=== PATIENT | male | born 1985 | race Caucasian/White ===

== ENCOUNTER → 2023-03-01 15:30 | Outpatient (CLI) | payer OTHER, SELFPAY ==
--- NOTE | ~2023-03-01 | XR_ITS ---
EXAMINATION: XR lumbar spine min 4V DATE: 03/01/2023 15:54 INDICATION: Low back pain. TECHNIQUE: 6 views of lumbar spine were obtained. COMPARISON: None. FINDINGS: S1 is a transitional segment. Bone alignment is normal. There is mild chronic anterior wedg ing of T12 and L1 vertebral bodies. There is mildly decreased disc height at T12-L1. There are endpla te osteophytes at most levels. There is multilevel facet joint osteoarthritis, severe bilaterally at L5-S1. IMPRESSION: 1. Mild lumbar spondylosis. Reviewed, dictated and finalized at location E. IMPRESSION: 1. Mild lumbar spondylosis.
== END ==
PROVIDERS: PCP Family Medicine; Visit Provider Family Medicine
DX: M47.896 Other spondylosis, lumbar region (principal)
CPT/HCPCS: 72110

== ENCOUNTER 2023-03-07 08:21 | Outpatient (CLI) | payer OTHER, SELFPAY ==
[2023-03-07 14:45] LABS: Basophils Percent Auto 0.6 % (0.2-1.2); Eosinophils Absolute Auto 0.1 K/mm3 (0-0.3); Eosinophils Percent Auto 1.8 % (0-4.4); Hematocrit 46.6 % (42.0-52.0); Hemoglobin 15.3 g/dL (14.0-18.0); Immature Granulocyte Absolute 0.01 K/mm3 (0.00-0.031); Immature Granulocyte Percent A 0.2 % (0-0.5); Lymphocytes Absolute Auto 2.14 K/mm3 (0.9-3.2); Lymphocytes Percent Auto 42.5 % (18.3-44.2); Mean Corpuscular HGB Conc 32.8 g/dl (32-36); Mean Corpuscular Hemoglobin 28.9 pg (26-34); Mean Corpuscular Volume 88.1 fl (80-100); Monocytes Absolute Auto 0.5 K/mm3 (0.1-0.6); Monocytes Percent Auto 9.9 % (2.6-8.5); Neutrophils Absolute Auto 2.3 K/mm3 (1.3-6.7); Platelet Count Result 231 k/mm3 (150-375); Red Blood Count 5.29 M/mm3 (4.6-6.20); Red Cell Distribution Width 12.8 % (11.5-14.5)
[2023-03-07 16:23] LABS: Alanine Aminotransferase 70 U/L (6-50); Albumin Level 4.7 g/dL (3.5-5.1); Alkaline Phosphatase 44 U/L (38-126); Anion Gap 9 mmol/L (8-16); Aspartate Amino Transferase 62 U/L (17-59); Bilirubin,Total 0.6 mg/dL (0.2-1.3); Blood Urea Nitrogen 18 mg/dL (9-20); Calcium 9.1 mg/dL (8.4-10.2); Carbon Dioxide 30 mmol/L (22-30); Chloride 102 mmol/L (98-107); Cholesterol 197 mg/dL (0-200); Estimated Glomerular Filt Rate > 60; Glucose 83 mg/dL (65-110); HDL Direct 31 mg/dL; Potassium 4.2 mmol/L (3.4-5.0); Sodium 141 mmol/L (137-145); Triglycerides 130 mg/dL (<150)
[2023-03-07 16:34] LABS: LDL Cholesterol Direct 128 mg/dL
== END 2023-03-07 08:22 | disposition home or self-care (01) ==
LOC: ANHGOSHLAB 08:23
PROVIDERS: PCP Family Medicine; Visit Provider Family Medicine
DX: R53.83 Other fatigue (principal); Z13.220 Encounter for screening for lipoid disorders; Z13.228 Encounter for screening for other metabolic disorders
CPT/HCPCS: 36415; 80053; 80061; 85025

== ENCOUNTER 2023-03-21 08:42 | Outpatient (CLI) | payer OTHER, SELFPAY ==
[2023-03-21 19:28] LABS: Alanine Aminotransferase 89 U/L (6-50); Albumin Level 4.7 g/dL (3.5-5.1); Alkaline Phosphatase 50 U/L (38-126); Anion Gap 9 mmol/L (8-16); Aspartate Amino Transferase 59 U/L (17-59); Bilirubin,Total 0.9 mg/dL (0.2-1.3); Blood Urea Nitrogen 14 mg/dL (9-20); Calcium 9.1 mg/dL (8.4-10.2); Carbon Dioxide 30 mmol/L (22-30); Chloride 100 mmol/L (98-107); Estimated Glomerular Filt Rate > 60; Glucose 74 mg/dL (65-110); Sodium 139 mmol/L (137-145)
== END 2023-03-21 08:43 | disposition home or self-care (01) ==
LOC: ANHGOSHLAB 08:43
PROVIDERS: PCP Family Medicine; Visit Provider Family Medicine
DX: R74.8 Abnormal levels of other serum enzymes (principal)
CPT/HCPCS: 36415; 80053

== ENCOUNTER 2023-06-13 08:00 | Outpatient (RCR) | payer OTHER, SELFPAY ==
--- NOTE | 2023-05-15 17:30 | PTOPEVAL1 ---
Assessment and note entered by Neida Leon, PT, DPT Evaluation Information Assessment Status Evaluation Diagnosis low back pain Subjective Information Pt states for 3 month this summer he was getting soreness in his lower back. It later led to some imaging which revealed some arthritis in his lower back. He states be feels better when he is active and more soreness when he sits for longer than an hour or so. He has 2 young kids that he is very active with. 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 Reported Pain Level Pain Score 0: Self Report Assessment PT Clinical Summary Chaz presents to [facility] today for his initial evaluation with a diagnosis of low back pain. Today he demonstrates decreased thoracic and lumbar mobility with active ROM and through palpation. He demonstrates an anteriorly shifted posture in standing and demonstrates increased thoracic kyphosis and a forward head in sitting. His hips are very thigh and restricted likely contributing to these postures. He reports an increase in pain with lifting/carrying. Skilled therapy services are indicated to improve body mechanics, flexibility, and to return to PLOF without limitations. Pt was instructed in a HEP, he plans to continue this at home and will return in one month for follow up. Plan of Care Interventions Electrical Stimulation,Gait Training,Hot Pack/Cold Pack,Manual Therapy,Neuro Re-education,Patient/ Caregiver Educati,Therapeutic Activities, Therapeutic Exercise PT Services Indicated Yes Treatment Frequency and follow up in one month Duration These treatments will address the objective and functional deficits as defined above. The patient will be advanced safely and appropriately in order for the patient to progress towards his/her prior level of function. Additional exercises will be introduced and as well as a comprehensive home exercise program upon discharge, if needed, ?to ensure carryover of functional gains achieved in the clinic. This treatment plan has been reviewed and agreement upon by the patient.
--- NOTE | 2023-06-13 08:50 | PTOPPROG ---
Assessment and note entered by Neida Leon, PT, DPT Evaluation Information Assessment Status Progress Diagnosis low back pain Subjective Information Pt states things are going well. He states he is doing his exercises about 5/7 days a week. He states he still feels a good stretch when he is doing his exercises but these have improved. He states last week he was reaching for something in his car and strained his back, he states this happens about 1-2x/month and it takes a week or two to feel back to normal. He states in the morning after these fair ups he tends to be a little more stiff than a normal day. Assessment PT Clinical Summary Chaz presents to therapy today for his progress report with a diagnosis of low back pain. He has completed hip HEP for the last month IND. Today the focus was shifted to body mechanics during functional movements, functional lifts and learning a hip hinge. Skilled therapy services are indicated to improve body mechanics, flexibility, and to return to PLOF without limitations. His HEP was progressed, he plans to continue this at home and will return in one month for follow up . Plan of Care Interventions Electrical Stimulation,Gait Training,Hot Pack/Cold Pack,Manual Therapy,Neuro Re-education,Patient/ Caregiver Educati,Therapeutic Activities, Therapeutic Exercise PT Services Indicated Yes Treatment Frequency and follow up in one month Duration These treatments will address the objective and functional deficits as defined above. The patient will be advanced safely and appropriately in order for the patient to progress towards his/her prior level of function. Additional exercises will be introduced and as well as a comprehensive home exercise program upon discharge, if needed, ?to ensure carryover of functional gains achieved in the clinic. This treatment plan has been reviewed and agreement upon by the patient.
--- NOTE | 2023-07-04 13:58 | PTOPDC ---
Assessment and note entered by Neida Leon, PT, DPT Evaluation Information Assessment Status Discharge - Pt Not Present Diagnosis low back pain Subjective Information Pt called today and cancelled his follow up appointment for next week. He states he is doing really well and does not need to return to therapy . He will be discharged at this time per pt request. Assessment PT Clinical Summary Chaz was evaluated on 05/14/23 and completed one other follow up appointment on 06/13/23.
== END 2023-07-04 14:34 | disposition home or self-care (01) ==
LOC: ANHGOSHPT 08:00
PROVIDERS: PCP Family Medicine; Visit Provider Family Medicine
DX: M54.50 Low back pain, unspecified (principal); G89.29 Other chronic pain
CPT/HCPCS: 97110; 97161; 97530

== ENCOUNTER 2024-05-04 10:36 | Emergency (ER) | payer OTHER, SELFPAY ==
[2024-05-04 10:41] VITALS: BP 123/78; PULSE 71; RESP 18; TEMP 35.9; O2SAT 100
--- NOTE | 2024-05-04 10:51 | ED.URI ---
HPI - URI/Sore Throat General Chief Complaint: Upper Respiratory Infection Stated Complaint: Cough Time Seen by Provider: 05/04/24 10:52 Source: patient, RN notes reviewed and old records reviewed Mode of arrival: ambulatory Limitations: no limitations History of Present Illness HPI Narrative: Patient presents with 4 day history of dry hacking cough. He reports cough is worse with lying down, states he has been sleeping poorly as a result. He denies any fever, chills, sweats. Slightly runny nose. No sore throat. Has been taking Mucinex, says this is making symptoms worse instead of better. He is not in any distress. He denies any shortness of breath or wheezing Related Data Allergies Allergy/AdvReac Type Severity Reaction Status Date / Time No Known Allergies Allergy Verified 05/04/24 10:41 Review of Systems Review of Systems: All systems reviewed & are unremarkable except as noted in HPI and below Constitutional: Constitutional: Reports as per HPI and Reports no additional constitutional complaints ENT: Reports system reviewed and no additional complaints, except as documented and Reports as per HPI Cardiovascular: Cardiovascular: Reports as per HPI and Reports no additional cardiovascular complaints Respiratory: Respiratory: Reports as per HPI, Reports no additional respiratory complaints, Reports cough and Denies dyspnea Gastrointestinal: Gastrointestinal: Reports no additional gastrointestinal complaints [facility], [facility] Surgical History Surgical History History of vasectomy Family History Family History Mother Family history of thyroid disease Sibling Patient's sister is in good health Patient's brother is in good health Father Malignant neoplasm of prostate Social History Social History Smoking status: Never smoker Second hand tobacco smoke exposure: No Alcohol intake: current Drinks per week: 2 Lack of Transportation: No Lack of Food: Never True Current Housing: I Have Housing Concerned About Future Housing: No Difficulty Paying Gas/Electric Bills: No Difficulty Paying for Meds: No Currently Unemployed: No Difficulty w/ Childcare or Family Care: No Comments At the time of my signature, I reviewed and agree with the nursing past medical, surgical, social, and family history. There is no relevant family history pertinent to the patient complaint. Exam Const: General: cooperative, no acute distress, alert and awake Orientation/consciousness: oriented to person, oriented to place and oriented to time HENMT: Head: normal to inspection Mouth: Yes moist mucous membranes Throat: posterior oropharynx normal Resp: Effort & Inspection: normal respiratory effort and able to speak in complete sentences Auscultation: clear to auscultation bilaterally, no crackles, no rales, no rhonchi and no wheezes Cardio: Palpation: normal PMI Rate: regular rate Rhythm: regular rhythm Heart sounds: S1 normal heart sound present and S2 normal heart sound present Neuro: General: oriented to person, oriented to place and oriented to time Cranial nerves: Yes CN's II-XII intact bilaterally Psych: Appearance: grossly normal Thought process: Normal thought process present Insight: Good insight present (Psych) Judgement: Good judgement present (Psych) Course Course Level of Care: Express Care Visit Vital Signs Vital signs: Vital Signs Temperature 96.6 F L 05/04/24 10:41 Pulse Rate 71 05/04/24 10:41 Respiratory Rate 18 05/04/24 10:41 Blood Pressure 123/78 05/04/24 10:41 Pulse Oximetry 100 05/04/24 10:41 Oxygen Delivery Room Air 05/04/24 10:41 Temperature 96.6 F L 05/04/24 10:41 Pulse Rate 71 05/04/24 10:41 Respiratory Rate 18 05/04/24 10:41 Blood Pressure 123/78 05/04/24 10:41 Pulse Oximetry 100
== END 2024-05-04 11:05 | disposition home or self-care (01) ==
PROVIDERS: Emergency Provider Nurse Practitioner Family; PCP Family Medicine
DX: J06.9 Acute upper respiratory infection, unspecified (principal); Z98.52 Vasectomy status
CPT/HCPCS: 99213; G0463

== ENCOUNTER 2025-01-29 09:08 | Emergency (ER) | payer OTHER, SELFPAY ==
[2025-01-29 09:18] VITALS: BP 142/93; PULSE 82; RESP 16; TEMP 36.8; O2SAT 100
--- NOTE | 2025-01-29 09:22 | PC.NURSE ---
0920 Taken to room 2, patient ambulatory with steady gait.
--- NOTE | 2025-01-29 09:34 | ED_ITS ---
HPI - General Adult General Chief complaint: Unspecified Stated complaint: Swollen Neck Time Seen by Provider: 01/29/25 09:19 Source: patient and RN notes reviewed Mode of arrival: ambulatory Limitations: no limitations History of Present Illness HPI narrative: Patient presents today with a 1 month history of swelling to the right neck area. He does report slight increase in size since noticing. Denies pain, sh ortness of breath, difficulty swallowing, but does report a, ?tickle in the throat. ? Denies recent illness, persistent cough, unexplained weight loss, or any additional symptoms. He cannot get in to see his PCP for 3 months and was told to come to urgent care for evaluation. Related Data Home Medications ?Medication ?Instructions ?Recorded ?Confirmed ?Last Taken ?Type No Home Medications 01/29/25 01/29/25 Unknown History Allergies Allergy/AdvReac Type Severity Reaction Status Date / Time No Known Allergies Allergy Verified 01/29/25 09:17 Review of Systems Review of Systems: CONSTITUTIONAL: Denies body aches, fever, chills, or sweats. EYES: Denies visual changes, redness, or discharge. ENT: Denies rhinorrhea, congestion, sore throat, or otalgia. CARDIOVASCULAR: Denies chest pain, palpitations, or edema. RESPIRATORY: Denies cough or dyspnea. GASTROINTESTINAL: Denies abdominal pain, nausea, vomiting, or diarrhea. GENITOURINARY: Denies dysuria or hematuria. SKIN: Right neck swelling MUSCULOSKELETAL: Denies back pain, joint pain, or myalgia. NEUROLOGIC: Denies headache, numbness, tingling, or weakness. PSYCH: Denies depression or anxiety. [facility] Surgical History Surgical History History of vasectomy Family History Family History Mother Family history of thyroid disease Sibling Patient's sister is in good health Patient's brother is in good health Father Malignant neoplasm of prostate Social History Social History Smoking status: Never smoker Second hand tobacco smoke exposure: No Alcohol intake: current Drinks per week: 2 Lack of Transportation: No Lack of Food: Never True Current Housing: I Have Housing Concerned About Future Housing: No Difficulty Paying Gas/Electric Bills: No Difficulty Paying for Meds: No Currently Unemployed: No Difficulty w/ Childcare or Family Care: No Comments Reviewed Exam Narrative: GENERAL: Well-appearing, well-nourished, and in no acute distress. HEAD: Normocephalic, atraumatic. EYES: EOMI. No redness or drainage. Conjunctivae normal. ENT: Mucous membranes pink and moist. Nares clear. No rhinorrhea. NECK: Normal AROM and does not elicit discomfort. 5 x 9 cm nontender area of localized swelling to the right anterolateral neck. Area is soft and movable. No erythema, ecchymosis, induration. It does move with swallowing. CHEST: No respiratory distress. Clear to auscultation. HEART: Regular rate and rhythm. No murmur appreciated. EXTREMITIES: Normal range of motion. No edema. SKIN: Warm, dry, no rash. Capillary refill normal. Normal skin turgor. NEURO: No focal deficits. Alert and oriented x3. Gait steady. PSYCH: Normal affect. No signs of depression or anxiety. Course Course Level of Care: Express Care Visit Vital Signs Vital signs: Vital Signs Temperature 98.2 F 01/29/25 09:18 Pulse Rate 82 01/29/25 09:18 Respiratory Rate 16 01/29/25 09:18 Blood Pressure 142/93 H 01/29/25 09:18 Pulse Oximetry 100 01/29/25 09:18 Oxygen Delivery Room Air 01/29/25 09:18 Temperature 98.2 F 01/29/25 09:18 Pulse Rate 82 01/29/25 09:18 Respiratory Rate 16 01/29/25 09:18 Blood Pressure 142/93 H 01/29/25 09:18 Pulse Oximetry 100 01/29/25 09:18 Oxygen Delivery Room Air 01/29/25 09:18 Reviewed Transfer Transfered to: [facility] Transportation: Other (Private vehicle) Transfer rationale: Neck swelling Accepting physician: Hector Kc comments: Report given to Shameka DEUTSCH Medical Decision Making MDM Narrative Medical decision making narrative: Patient will be transferred to the ER for further evaluation. Differential Diagnosis Differential Diagnosis: Thyroid nodule, lymphadenopathy, malignancy, lipoma Vital Signs Vital Signs: Vital Signs Temperature 98.2 F 01/29/25 09:18 Pulse Rate 82 01/29/25 09:18 Respiratory Rate 16 01/29/25 09:18 Blood Pressure 142/93 H 01/29/25 09:18 Pulse Oximetry 100 01/29/25 09:18 Oxygen Delivery Room Air 01/29/25 09:18 Temperature 98.2 F 01/29/25 09:18 Pulse Rate 82 01/29/25 09:18 Respiratory Rate 16 01/29/25 09:18 Blood Pressure 142/93 H 01/29/25 09:18 Pulse Oximetry 100 01/29/25 09:18 Oxygen Delivery Room Air 01/29/25 09:18 Critical Care Time Critical Care Time Critical Care Time: No Discharge Plan Discharge Clinical Impression: Localized swelling, mass and lump, neck Patient Disposition: Acute Care Hospital Condition: Stable Patient Language: Palestinian Prescriptions: No Action No Home Medications Follow-up/Referrals: PHYSICIAN,PROPOSAL COORDINATOR [Primary Care Provider] - Time of Disposition: 09:35
== END 2025-01-29 09:38 | disposition short-term general hospital (02) ==
PROVIDERS: Emergency Provider Nurse Practitioner
DX: R22.1 Localized swelling, mass and lump, neck (principal); Z98.52 Vasectomy status
CPT/HCPCS: 99212; G0463

== ENCOUNTER 2025-01-29 09:53 | Emergency (ER) | payer OTHER, SELFPAY ==
--- NOTE | ~2025-01-29 | CT_ITS ---
EXAMINATION: CT soft tissue neck w con DATE: 01/29/2025 11:02 INDICATION: Anterolateral right neck swelling TECHNIQUE: Computed tomography (CT) of the neck was performed with 75 mL Omnipaque-350 intravenous co ntrast. Automated exposure control and iterative reconstruction technique were employed. The dose-dakotah gth product was 650.44 mGy-cm. COMPARISON: None FINDINGS: Orbits are normal. Mucous retention cysts in the left maxillary sinus. Mastoid air cells and middle e ar cavities are clear. Submandibular and parotid glands are symmetric and large centrally hypodense l ikely partially cystic nodule in the right thyroid lobe which measures 5.8 cm in craniocaudal length. There are scattered normal-sized lymph nodes in the neck, no lymphadenopathy. No other masses ident ified. The vasculature is patent and normal in caliber. Airway is unremarkable. Calcified right hilar and mediastinal lymph nodes consistent with old granulomatous disease. His last upper lungs are neville r.. IMPRESSION: 1. 5.8 cm right thyroid mass for which ultrasound-guided biopsy would be recommended. Reviewed, dictated and finalized at location A. IMPRESSION: 1. 5.8 cm right thyroid mass for which ultrasound-guided biopsy would be recomm ended.
[2025-01-29 09:56] VITALS: BP 146/101; PULSE 74; RESP 16; TEMP 36.7; O2SAT 100
--- NOTE | 2025-01-29 10:08 | ED.SKABFB ---
HPI - Skin/Abscess/Foreign Bdy General Chief complaint: Skin/Abscess/Foreign Body Stated complaint: swelling to neck Time Seen by Provider: 01/29/25 09:55 Source: patient Mode of arrival: ambulatory Limitations: no limitations History of Present Illness HPI narrative: Patient is a 39-year-old male who presents the ED with report of swelling to his neck. Patient reports he has noticed an area of swelling to his anterior and right lateral neck over the past 1 month. States it does not cause him any problems. Denies any pain. Denies pain with neck movement. Denies difficulty breathing. Over the past 1 week, he has noticed slight change in his swallowing related to the swelling, but denies dysphasia. He went to an urgent care today was prompted to the ED for further evaluation. He is unable to see his primary care doctor until April. Denies fevers. Denies history of thyroid issues. Related Data Home Medications ?Medication ?Instructions ?Recorded ?Confirmed ?Last Taken ?Type No Home Medications 01/29/25 01/29/25 Unknown History Allergies Allergy/AdvReac Type Severity Reaction Status Date / Time No Known Allergies Allergy Verified 01/29/25 09:59 Review of Systems Review of Systems: All systems reviewed & are unremarkable except as noted in HPI. All systems reviewed & are unremarkable except as noted in HPI and below PMFSH Past Medical History Medical History (Updated 01/29/25 @ 13:10 by Aleja Wood PA-C) Carpal tunnel syndrome of right wrist Thyroid mass Surgical History Surgical History History of vasectomy Family History Family History Mother Family history of thyroid disease Sibling Patient's sister is in good health Patient's brother is in good health Father Malignant neoplasm of prostate Social History Social History Smoking status: Never smoker Second hand tobacco smoke exposure: No Alcohol intake: current Drinks per week: 2 Lack of Transportation: No Lack of Food: Never True Current Housing: I Have Housing Concerned About Future Housing: No Difficulty Paying Gas/Electric Bills: No Difficulty Paying for Meds: No Currently Unemployed: No Difficulty w/ Childcare or Family Care: No Exam Narrative: GENERAL: Well appearing, well nourished, non-toxic, in no acute distress. HEAD: Normocephalic, atraumatic. NECK: Appreciable swelling to lower anterior neck extending slightly to the R anterolateral region. Does feel soft and slightly moveable. Nontender. Not firm. No overlying erythema or warmth. Neck is supple with full nonpainful ROM. RESPIRATORY: Airway patent, respirations nonlabored. Clear to auscultation bilaterally, no rales, rhonchi, wheezing. No stridor or distress. CARDIOVASCULAR: Regular rate and rhythm without murmurs, rubs, or gallops. MUSCULOSKELETAL: Moves all extremities. No gross deformities. SKIN: Warm, dry, normal color. NEURO: A&O X3. Speech clear. PSYCHIATRIC: Appropriate mood and affect. Normal interaction. Course Vital Signs Vital signs: Vital Signs Temperature 98.1 F 01/29/25 09:56 Pulse Rate 74 01/29/25 09:56 Respiratory Rate 16 01/29/25 09:56 Blood Pressure 146/101 H 01/29/25 09:56 Pulse Oximetry 100 01/29/25 09:56 Oxygen Delivery Room Air 01/29/25 09:56 Temperature 98.1 F 01/29/25 09:56 Pulse Rate 76 01/29/25 13:00 Respiratory Rate 16 01/29/25 13:00 Blood Pressure 143/104 H 01/29/25 13:00 Pulse Oximetry 99 01/29/25 13:00 Oxygen Delivery Room Air 01/29/25 09:56 MDM - Skin/Abscess/Foreign Bdy MDM Narrative Medical decision making narrative: Patient presented to ED with 1 month history of anterior neck swelling. Vital signs are stable. Patient denying any respiratory complaints. No signs of airway compromise or respiratory distress. No difficulty swallowing or breathing. Oxygen stable on room air. Laboratory studies without leukocytosis. Thyroid studies within normal range. CT soft tissue neck was obtained and showing 5.8 cm right-sided thyroid mass. Recommending ultrasound-guided biopsy. Discussed with Radiology, no availability to have procedure done today. Will have to be outpatient. Will place outpatient order to have ultrasound-guided biopsy of thyroid. Discussed case with Dr. Estrada, PCP, who patient is scheduled to see as new patient in April. Will have office contact patient today to make follow-up appointment after biopsy. Patient was updated on imaging findings, need for close follow-up, given strict return precautions. He is in agreement with plan. Feels comfortable going home. Discharged in stable condition. Medical Records Attestation: I reviewed the patient's medical records. Lab Data Attestation: I reviewed the patient's lab results. 01/29/25 10:16 01/29/25 10:16 Labs: Lab Results 01/29/25 Range/Units 10:16 WBC 5.0 (4.5-10.0) K/mm3 RBC 5.49 (4.6-6.20) M/mm3 Hgb 16.0 (14.0-18.0) g/dL Hct 47.4 (42.0-52.0) % MCV 86.3 (80-100) fl MCH 29.1 (26-34) pg MCHC 33.8 (32-36) g/dl RDW 12.5 (11.5-14.5) % Plt Count 222 (150-375) k/mm3 MPV 8.4 (7.4-10.4) fl Immature Gran % (Auto) 0.0 (0-0.5) % Neut % (Auto) 58.2 (45.5-73.1) % Lymph % (Auto) 32.2 (18.3-44.2) % Mills % (Auto) 7.6 (2.6-8.5) % Eos % (Auto) 1.0 (0-4.4) % Baso % (Auto) 1.0 (0.2-1.2) % Lymph # (Auto) 1.60 (0.9-3.2) K/mm3 Mills # (Auto) 0.4 (0.1-0.6) K/mm3 Eos # (Auto) 0.1 (0-0.3) K/mm3 Baso # (Auto) 0.1 (0.0-0.1) K/mm3 Abs Immat Gran (auto) 0.00 (0.00-0.031) K/mm3 Absolute Neuts (auto) 2.9 (1.3-6.7) K/mm3 Absolute Nucleated RBC 0.000 (0.0-0.012) K/mm3 Nucleated RBC % 0.0 (0.0-0.2) % Sodium 138 (137-145) mmol/L Potassium 4.9 (3.4-5.0) mmol/L Chloride 103 (98-107) mmol/L Carbon Dioxide 26 (22-30) mmol/L Anion Gap 9 (4-12) mmol/L BUN 14 (9-20) mg/dL Creatinine 1.07 (0.7-1.3) mg/dL Estim Creat Clear Calc 104 ml/min Estimated GFR > 60 (59 - ) Glucose 104 (65-110) mg/dL Calcium 9.5 (8.4-10.2) mg/dL TSH (Reflex) 1.910 (0.465-4.68) uIU/mL Imaging Data Attestation: I personally reviewed and interpreted this imaging study as follows: Radiologist's impression: ITS Impressions Soft Tissue Neck CT 01/29/25 11:50 IMPRESSION: 1. 5.8 cm right thyroid mass for which ultrasound-guided biopsy would be recommended. Discharge Plan Discharge Clinical Impression: Thyroid mass Patient Disposition: Home Condition: Stable Instructions: Antibiotic Form, Thyroid Goiter (ED), Thyroid Nodules (ED) Additional Instructions: Contact [facility] ([phone]) to make appointment for outpatient ultrasound guided biopsy of thyroid. Take lab order sheet with you. Dr. Estrada's office should be contacting today to make a follow-up appointment. Return to the ED if you experience worsening or severe swelling, difficulty breathing or swallowing, unable to keep down food or drink, persistent fevers, or any other symptoms of concern. Patient Language: Citizen Of [place] Prescriptions: No Action No Home Medications Other Ambulatory Orders: US biopsy thyroid (Routine) Timeframe: 1 Month Location: Determined by Patient Ordered By: Aleja Wood Follow-up/Referrals: Geronimo Estrada MD [Physician] - (PRIMARY CARE) PHYSICIAN,[employer] [Non-Staff] - Time of Disposition: 13:05
[2025-01-29 10:21] LABS: Basophils Absolute Auto 0.1 K/mm3 (0.0-0.1); Eosinophils Absolute Auto 0.1 K/mm3 (0-0.3); Hematocrit 47.4 % (42.0-52.0); Lymphocytes Percent Auto 32.2 % (18.3-44.2); Mean Corpuscular HGB Conc 33.8 g/dl (32-36); Mean Corpuscular Hemoglobin 29.1 pg (26-34); Mean Corpuscular Volume 86.3 fl (80-100); Mean Platelet Volume 8.4 fl (7.4-10.4); Monocytes Absolute Auto 0.4 K/mm3 (0.1-0.6); Monocytes Percent Auto 7.6 % (2.6-8.5); Neutrophils Absolute Auto 2.9 K/mm3 (1.3-6.7); Neutrophils Percent Auto 58.2 % (45.5-73.1); Platelet Count Result 222 k/mm3 (150-375); Red Blood Count 5.49 M/mm3 (4.6-6.20); Red Cell Distribution Width 12.5 % (11.5-14.5)
[2025-01-29 10:34] LABS: Anion Gap 9 mmol/L (4-12); Blood Urea Nitrogen 14 mg/dL (9-20); Calcium 9.5 mg/dL (8.4-10.2); Carbon Dioxide 26 mmol/L (22-30); Chloride 103 mmol/L (98-107); Estimated CRCL calculation 104 ml/min; Estimated Glomerular Filt Rate > 60; Glucose 104 mg/dL (65-110); Potassium 4.9 mmol/L (3.4-5.0); Sodium 138 mmol/L (137-145)
--- OUTSIDE RECORDS SUMMARY | 2025-01-29 10:40 | XMS_ITS | Clinical Summary ---
Author Organization [facility] Care Team Providers Care Wood Gluer Name Role Phone Unavailable Primary Care Provider Unavailabl e Social History Tobacco Use Types Packs/Day Years Used Date Smoking Tobacco: Never Assessed Sex and Gender Information Value Date Recorded Sex Assigned at Not on file Legal Sex Male 8:02 AM [employer] Gender Identity Not on file Sexual Orientation Not on file Plan of Treatment Health Maintenance Due Date Last Done Comments Hepatitis C Virus (HCV) Screening 1984 Hepatitis B Immunization (1 of 3 - 19+ 3-dose series) 2003 Influenza Immunization (#1) 04/20/202409/2019, 06/09/2019, 06/10/2018 SARS-COV-2 Immunization ( season) 2024 Respiratory Syncytial Virus (RSV) Immunization (Adult) (1 - 1-dose 75+ series) 2059 DTaP/Tdap/Td Immunization Discontinued 06/10/2018 TdaP Immunization Completed 06/10/2018 Meningococcal Immunization (ACWY) Aged Out No longer eligible based on patient's age to complete this topic Pneumococcal Immunization Combined Aged Out No longer eligible based on patient's age to complete this topic Rotavirus Immunization Aged Out No lo nger eligible based on patient's age to complete this topic
--- OUTSIDE RECORDS SUMMARY | 2025-01-29 10:40 | XMS_ITS | Clinical Summary ---
Author Organization [facility] Address [address] [place] [address] Care Team Providers Care Roof Tiler Name Role Phone Unavailable Primary Care Provider Unavailabl e Source Comments [facility],non-owned Affiliates and Associated Physician Practices is amultiple site organization consisting of ambulatory clinics and hospital sitesin [place], [place], [place] and [place]. This disclosure is being madepursuant to the Care Everywhere program and may not contain all information available regarding this patient. Last updated 18.[facility] Allergies No known active allergies Medications * Be aware that medications may not be up to date on this document. Alwaysverify current medications with the patient. No known medications Immunizations Immunization Administration Dates Next Due INFLUENZA VACCINE, QUADR. (F LUZONE; FLULAVAL; FLUARIX; AFLURIA QUADRIVALENT; 6MO+), 0.5 ML (IIV4) 06/09/2019 Social History Tobacco Use Types Packs/Day Years Used Date Smoking Tobacco: Never Assessed Sex and Gender Information Value Date Recorded Sex Assigned at Not on file Legal Sex Male 9:52 AM CDT Gender Identity Not on file Sexual Orientation Not on file Last Filed Vital Signs Vital Sign Reading Time Taken Comments Blood Pressure 118/76 01/12/2019 2:20 PM CDT Pulse 71 01/12/2019 2:20 PM CDT Temperature 37.1 C (98.7 F) 01/12/2019 2:20 PM CDT Respiratory Rate 18 01/12/2019 2:20 PM CDT Oxygen Saturation 99% 01/12/2019 2:20 PM CDT Inhaled Oxygen Concentration - - Weight 97.5 kg (215 lb) 01/12/2019 2:20 PM CDT Height 185.4 cm (6' 1) 01/12/2019 2:20 PM CDT Body Mass Index 28.37 01/12/2019 2:20 PM CDT Plan of Treatment Health Maintenance Due Date Last Done Comments LIPID TESTING 1984 HIV SCREENING 1999 HEPATITIS C SCREENING 05/31/2002 DTAP/TDAP/TD VACCINES (1 - Tdap) 2003 HEPATITIS B VACCINE (1 of 3 - 19+ 3-dose series) 2003 COVID-19 VACCINE (1 - 2023-2 5 season) 2024 DEPRESSION SCREENING 08/20/2024 INFLUENZA VACCINE (Season Ended) 2025 06/09/20 19 ZOSTER VACCINE (1 of 2) 2034 HIB VACCINE Aged Out No longer eligi ble based on patient's age to complete this topic HPV VACCINE Aged Out No longer eligi ble based on patient's age to complete this topic MENINGOCOCCAL (Group B) VACC INE SHARED DECISION-MAKING Aged Out No longer eligibl e based on patient's age to complete this topic MENINGOCOCCAL GROUPS A/C/Y/W VACCINE Aged Out No longer eligible b ased on patient's age to complete this topic PNEUMOCOCCAL VACCINE Aged Out No long er eligible based on patient's age to complete this topic Insurance [id number] [place] [id number] AET[employer]
--- OUTSIDE RECORDS SUMMARY | 2025-01-29 11:03 | XMS_ITS | Clinical Summary ---
Author Organization [facility] Address [address] [place] [address] Care Team Providers Care Ink Technician Name Role Phone Unavailable Primary Care Provider Unavailabl e Source Comments [facility],non-owned Affiliates and Associated Physician Practices is amultiple site organization consisting of ambulatory clinics and hospital sitesin [place], [place], [place] and [place]. This disclosure is being madepursuant to the Care Everywhere program and may not contain all information available regarding this patient. Last updated 18.[employer] [facility] Allergies No known active allergies Medications * [...] patient's age to complete this topic Insurance AETNA
--- OUTSIDE RECORDS SUMMARY | 2025-01-29 11:03 | XMS_ITS | Clinical Summary ---
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
[2025-01-29 11:10] VITALS: BP 143/97; PULSE 76; RESP 16; O2SAT 99
[2025-01-29 12:23] VITALS: BP 147/109; PULSE 76; RESP 18; O2SAT 100
[2025-01-29 13:00] VITALS: BP 143/104; PULSE 76; RESP 16; O2SAT 99
== END 2025-01-29 13:24 | disposition home or self-care (01) ==
PROVIDERS: Emergency Provider Physician Assistant
DX: R22.1 Localized swelling, mass and lump, neck (principal); E07.9 Disorder of thyroid, unspecified
CPT/HCPCS: 36415; 70491; 80048; 84443; 85025; 99284; Q9967

== ENCOUNTER 2025-03-19 12:36 | Outpatient (CLI) | payer OTHER, SELFPAY ==
--- NOTE | ~2025-03-19 | US_ITS ---
EXAMINATION: US FNA w image guidance DATE: 03/19/2025 13:29 INDICATION: Thyroid disorder TECHNIQUE: A time-out was performed to verify the patient's name, date of , and procedure to be performed . The procedure and its benefits and risks were discussed with the patient. Risks specifically discus sed included bleeding and infection. The patient understood the risks and agreed to proceed. The neck was prepped and draped in the usual sterile manner. 5 mL 1% lidocaine was used for local anesthesia . 4 passes were made with a 25G needle into the lesion. Appropriate needle location was documented with continuous sonographic guidance. A sterile bandage was applied. There were no immediate compli cations. FINDINGS: Grayscale ultrasound images demonstrate biopsy needles advanced into a 4.6 cm predominantly solid wid er than tall heterogeneously isoechoic hypoechoic TI RADS 4 right thyroid nodule. IMPRESSION: 1. Successful ultrasound-guided fine needle aspiration of a 4.6 cm TI RADS 4 right thyroid nodule. Reviewed, dictated and finalized at location A. IMPRESSION: 1. Successful ultrasound-guided fine needle aspiration of a 4.6 cm TI RADS 4 r ight thyroid nodule.
--- OUTSIDE RECORDS SUMMARY | 2025-03-19 12:38 | XMS_ITS | Clinical Summary ---
Author Organization [facility] Address [address] [place] [address] Care Team Providers Care Bush Hog Operator Name Role Phone Unavailable Primary Care Provider Unavailabl e Source Comments [facility],non-owned Affiliates and Associated Physician Practices is amultiple site organization consisting of ambulatory clinics and hospital sitesin [place], [place], [place] and [place]. This disclosure is being madepursuant to the Care Everywhere program and may not contain all information available regarding this patient. Last updated 18.[employer] [facility] Allergies No known active allergies Medications * [...] of 3 - 19+ 3-dose series) 2003 HPV VACCINE (1 - 3-dose SCDM series) 2011 COVID-19 VACCINE (1 - 2023-2 5 season) 2024 DEPRESSION SCREENING 08/20/2024 INFLUENZA VACCINE (#1) 2025 06/09/2019 ZOSTER VACCINE (1 of 2) 2034 HIB [...]
--- OUTSIDE RECORDS SUMMARY | 2025-03-19 12:38 | XMS_ITS | Clinical Summary ---
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
--- NOTE | 2025-03-19 13:25 | CY_PTH ---
PATIENT: Chaz Jay LOC: [facility] U#:[id number] AGE/SX: 39/M ROOM: RE03/19/[address]: Dulce Maria Odonnell APRN : 1985 BED: DIS: 03/19/2025 SPEC #: [id number] RECD: 03/19/25 13:36 STATUS: ESTEBAN REQ #: [id number] EVE: 03/19/25 13:[address]: Dulce Maria Odonnell DEPT: [facility] Cytology RECD BY: Vikki Arizmendi ENTERED: 03/19/25 13:38 SP TYPE: Cytology OT DR: Geronimo Estrada MD Tissues: A - FNA Thyroid Procedures: Hematoxylin and Eosin Stain Cell Block Fine Needle Aspiration Evaluation Fine Needle Aspiration Pathologist
== END 2025-03-19 12:37 | disposition home or self-care (01) ==
PROVIDERS: PCP Family Medicine; Visit Provider Nurse Practitioner Family
DX: E07.9 Disorder of thyroid, unspecified (principal)
CPT/HCPCS: 10005; 88172; 88173; 88305

== ENCOUNTER 2025-05-01 15:18 | Outpatient (CLI) | payer OTHER, SELFPAY ==
--- OUTSIDE RECORDS SUMMARY | 2025-05-01 15:53 | XMS_ITS | Clinical Summary ---
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
--- OUTSIDE RECORDS SUMMARY | 2025-05-01 15:53 | XMS_ITS | Clinical Summary ---
Author Organization [facility] Address [address] [place] [address] Care Team Providers Care Material Yard Clerk Name Role Phone Unavailable Primary Care Provider Unavailabl e Source Comments [facility],non-owned Affiliates and Associated Physician Practices is amultiple site organization consisting of ambulatory clinics and hospital sitesin [place], [place], [place] and [place]. This disclosure is being madepursuant to the Care Everywhere program and may not contain all information available regarding this patient. Last updated 18.[facility] [facility] Allergies No known active allergies Medications * [...] VACCINE (1 - 3-dose SCDM series) 2011 DEPRESSION SCREENING 08/20/2024 COVID-19 VACCINE (1 - 2023-2 5 season) 2025 INFLUENZA VACCINE (#1) 2025 06/09/2019 ZOSTER VACCINE [...] age to complete this topic Insurance AETNA [facility] Address: [facility] [id number] [place] [address]
--- OUTSIDE RECORDS SUMMARY | 2025-05-01 15:53 | XMS_ITS | Clinical Summary ---
Author Organization [facility] Address [address] [place] [phone] Care Team Providers Care Cardiology Technologist Name Role Phone Geronimo Estrada MD Primary Care Provider [phone] Allergies No known active allergies Medications No known medications Active Problems Problem Noted Date Diagnosed Date Thyroid nodule 04/02/2025 Papillary thyroid carcinoma 04/01/2025 Encounters Date Type Department Care Team Description 04/02/2025 Orders Only [facility] Medicine Pathology Outreach [address] [place] [id number] Travis Urbano MD Thyroid nodule 04/01/2025 11:20 AM CDT Office Visit [facility] Medicine Otolaryngology Head-Neck Division [address] [place] [phone] Travis Urbano MD Papillary thyroid carcinoma (HCC) (Primary Dx) 04/01/2025 8:50 AM CDT - 04/01/2025 11:59 PM CDT Hospital Encounter [facility] Radiology [address] [place] [address] Thyroid nodule Discharge Disposition: Discharge to home or self care 03/31/2025 5:31 PM CDT - 03/31/2025 11:59 PM CDT Hospital Encounter [facility] Radiology [facility]) [address] [place] [phone] Discharge Disposition: Discharge to home or self care 03/31/2025 Orders Only [facility] Medicine Otolaryngology Head-Neck Division [address] [place] [phone] Travis Urbano MD Thyroid nodule (Primary Dx) 03/27/2025 Orders Only [facility] Medicine Otolaryngology Head-Neck Division [address] [facility] Floor [address] [place] [address] Travis Urbano MD Thyroid nodule (Primary Dx) 03/24/2025 Telephone [facility] Medicine Otolaryngology [address] [place], [place] [phone] Kyleigh Helms MS from Last 3 Months Immunizations Immunization Administration Dates Next Due Influenza, Quadrivalent, Na l Culture-based MDCK, Preservative Free, Antibiotic Free, Intramuscular 06/07/2022,05/21/2020,06/10/2018 Influenza, Quadrivalent, Spl it, Preservative Free, Intramuscular 06/01/2023,06/09/2019 Tdap 06/10/2018 Social History Tobacco Use Types Packs/Day Years Used Date Smoking Tobacco: Never Smokeless Tobacco: Never Tobacco Cessation:Counseling Given: Not Answered Sex and Gender Information Value Date Recorded Sex Assigned at Not on file Legal Sex Male 10:41 AM CDT Gender Identity Not on file Sexual Orientation Not on file Obstetrics History Last Filed Vital Signs Vital Sign Reading Time Taken Comments Blood Pressure 128/86 04/01/2025 11:11 AM CDT Pulse 84 04/01/2025 11:11 AM CDT Temperature - - Respiratory Rate 18 04/01/2025 11:1 1 AM CDT Oxygen Saturation 100% 04/01/2025 11: 11 AM CDT Inhaled Oxygen Concentration - - Weight 103.7 kg (228 lb 9.6 oz) 025 11:11 AM CDT Height 188.5 cm (6' 2.21) 04/01/2025 1 1:11 AM CDT Body Mass Index 29.18 04/01/2025 11:11 AM CDT Plan of Treatment Upcoming Encounters Date Type Department Care Team (Late st Contact Info) Description 05/26/2025 7:30 AM CDT Hospital Encounter [facility] Operating Room [address] [place] [phone] Travis Urbano MD [address] [place], [place] [phone] 05/26/2025 7:30 AM CDT - 05/26/2025 10:30 AM CDT Surgery [facility] Operating Room [address] [facility] [place] [address] Travis Urbano MD [address] [place] [address] THYROIDECTOMY. Scheduled Procedures Name Priority Associated Diagnoses Date/Ti me THYROIDECTOMY. Thyroid nodule 05/26/2025 7:30 AM CDT Health Maintenance Due Date Last Done Comments Depression Screening 1984 Hepatitis C Screening 1984 Varicella Vaccines (1 of 2 - 13+ 2-dose series) 1997 Hepatitis B Screening 2002 Regular Well Visit/Exam 2002 HPV Vaccines (1 - 3-dose SCDM series) 2011 Covid-19 Vaccine ( season) 2025 06/23/2023, 07/07/2021, 10/29/2020, Additional history exists Influenza Vaccine (#1) 2025 , 06/07/2022, 05/21/2020, Additional history exists DTaP/Tdap/Td Vaccine (2 - Td or Tdap) 06/10/2028 06/10/2018 Pneumococcal vaccine <65 Aged Out No longer eligible based on patient's age to complete this topic Goals Goal Patient Goal Type Associated Problems Recent Progress Patient-Stated? Author Autogenerat ed Goal Care Plan Autogenerated Problem No Arlen Zapata, [facility] Procedures Procedure Name Priority Date/Time Associated Diagnosis Comments US SOFT TISSUE HEAD NECK Schedule Routine, Read Routine (OP Routine) 04/01/2025 9:53 AM CDT Thyroid nodule NEURO CT OUTSIDE REFERENCE Routine 03/31/2025 5:31 PM CDT from Last 3 Months Results * US Soft Tissue Neck (04/01/2025 9:53 AM CDT) Anatomical Region Laterality Modality Head and Neck N/A Ultrasound 04/01/2025 10:0 8 AM CDT Impressions 04/01/2025 10:38 AM CDT 1. There is a 5.7 cm TR-5 mass in the right mid thyroid lobe that has been been sampled in the past with results suspicious for malignancy. 2. No suspicious lymphadenopathy. ACR TI-RADS Recommendations FNA should only be recommended on a maximum of 2 nodules. A recommendation for follow-up should only be provided for a maximum of 4 nodules. TR5 (>=7 points) (risk of malignancy > 20%) >=1 cm: FNA 0.5-0.9 cm: follow-up US every year for 5 years <0.5 cm: no further evaluation TR4 (4-6 points) (risk of malignancy 5-20%) >=1.5 cm: FNA 1-1.4 cm: follow-up US in 1, 2, 3, and 5 years <1.0 cm: no further evaluation TR3 (3 points) (risk of malignancy 2-5%) >=2.5 cm: FNA 1.5-2.4 cm: follow-up US in 1, 3, and 5 years <1.5 cm: no further evaluation TR2 (2 points) and TR1 (0 points) (risk of malignancy < 2%) No FNA or follow-up US Dictated by: Sam Tadeo MD The radiology attending physician has personally reviewed this study, and had reviewed and/or edited this written report and agrees with it. Electronically signed by: Vasile Cueto M.D. Narrative 04/01/2025 10:38 AM CDT EXAMINATION: THYROID SONOGRAM HISTORY: Thyroid nodule COMPARISON: None FINDINGS: The thyroid is enlarged in size, secondary to large right thyroid mass. Size right lobe: 6.7 cm craniocaudal, 4 cm transverse, 4.1 cm AP. Size left lobe: 5 cm craniocaudal, 1.5 cm transverse, 1.2 cm AP. Size isthmus: 0.5 cm AP. Nodule 1: Location: Right mid . Size: 5.7 cm craniocaudal x 3.8 cm transverse x 4.1 cm AP Maximum Size: 5.7 cm Composition: Solid/almost completely solid (2) Echogenicity: Isoechoic (1) Shape: Taller than wide (3) Margins: Smooth (0) Echogenic foci: Punctate echogenic foci (3) Additional Echogenic foci 1: Macrocalcifications (1) ACR TI-RADS total points: 10 ACR TI-RADS risk category: TR5 (7 or more points) Follow-up details: Prior biopsy: Yes, recently completed fine-needle aspiration showed features suspicious for malignancy Normal sized and morphologically normal lymph nodes are seen in the neck on both sides. Procedure Note Vasile Cueto MD - 04/01/2025 EXAMINATION: THYROID SONOGRAM HISTORY: Thyroid nodule COMPARISON: None FINDINGS: The thyroid is enlarged in size, secondary to large right thyroid mass. Size right lobe: 6.7 cm craniocaudal, 4 cm transverse, 4.1 cm AP. Size left lobe: 5 cm craniocaudal, 1.5 cm transverse, 1.2 cm AP. Size isthmus: 0.5 cm AP. Nodule 1: Location: Right mid . Size: 5.7 cm craniocaudal x 3.8 cm transverse x 4.1 cm AP Maximum Size: 5.7 cm Composition: Solid/almost completely solid (2) Echogenicity: Isoechoic (1) Shape: Taller than wide (3) Margins: Smooth (0) Echogenic foci: Punctate echogenic foci (3) Additional Echogenic foci 1: Macrocalcifications (1) ACR TI-RADS total points: 10 ACR TI-RADS risk category: TR5 (7 or more points) Follow-up details: Prior biopsy: Yes, recently completed fine-needle aspiration showed features suspicious for malignancy Normal sized and morphologically normal lymph nodes are seen in the neck on both sides. IMPRESSION: 1. There is a 5.7 cm TR-5 mass in the right mid thyroid lobe that has been been sampled in the past with results suspicious for malignancy. 2. No suspicious lymphadenopathy. ACR TI-RADS Recommendations FNA should only be recommended on a maximum of 2 nodules. A recommendation for follow-up should only be provided for a maximum of 4 nodules. TR5 (>=7 points) (risk of malignancy > 20%) >=1 cm: FNA 0.5-0.9 cm: follow-up US every year for 5 years <0.5 cm: no further evaluation TR4 (4-6 points) (risk of malignancy 5-20%) >=1.5 cm: FNA 1-1.4 cm: follow-up US in 1, 2, 3, and 5 years <1.0 cm: no further evaluation TR3 (3 points) (risk of malignancy 2-5%) >=2.5 cm: FNA 1.5-2.4 cm: follow-up US in 1, 3, and 5 years <1.5 cm: no further evaluation TR2 (2 points) and TR1 (0 points) (risk of malignancy < 2%) No FNA or follow-up US Dictated by: Sam Tadeo MD The radiology attending physician has personally reviewed this study, and had reviewed and/or edited this written report and agrees with it. Electronically signed by: Vasile Cueto M.D. us Travis Urabno MD IMG US PROCEDURES Final Re sult * Neuro CT Outside Reference (03/31/2025 5:31 PM CDT) Impressions [facility] - 03/31/2025 5:31 PM CDT These images are for Reference purposes only and have not been reviewed by [facility]iology. There will be no report generated by a [facility] Radiologist. Narrative [facility] - 03/31/2025 5:31 PM CDT EXAMINATION: Images For Reference Purposes Only us Travis Urbano MD IMG CT PROCEDURES Final Re sult [facility] from Last 3 Months Additional Health Concerns Active Problems Noted Date Diagnosed Date Autogenerated Problem 04/09/2025 Insurance [facility] H[facility]/PPO Address: [address] [address] [place], [place] [id number] [place] [address] [facility] H[facility]/PPO Address: [facility] [id number] [place] [address] [place] [address] [facility] [facility] H[facility]/PPO Address: [address] [address] [place], [place] [id number] [place] [address] Care Teams Cardiology Technologist Relationship Specialty Start Date End Date Geronimo Estrada MD [address] [place] [address] [place] [address] PCP - General Family Medicine 03/23/25
[2025-05-01 19:12] LABS: Alanine Aminotransferase 48 U/L (6-50); Albumin Level 4.7 g/dL (3.5-5.1); Alkaline Phosphatase 45 U/L (38-126); Anion Gap 8 mmol/L (4-12); Aspartate Amino Transferase 43 U/L (17-59); Bilirubin,Total 0.9 mg/dL (0.2-1.3); Blood Urea Nitrogen 14 mg/dL (9-20); Calcium 9.2 mg/dL (8.4-10.2); Carbon Dioxide 30 mmol/L (22-30); Chloride 102 mmol/L (98-107); Estimated Glomerular Filt Rate > 60; Glucose 99 mg/dL (65-110); Potassium 3.8 mmol/L (3.4-5.0); Sodium 140 mmol/L (137-145); Total Protein 8.0 g/dL (6.3-8.2)
[2025-05-01 19:24] LABS: Hepatitis B Surface Antigen Negative (Negative)
[2025-05-01 19:30] LABS: HAV RESULT Negative (Negative); Hepatitis B Core IgM Result Negative (Negative)
[2025-05-01 19:48] LABS: Prostate Specific Antigen 1.3 ng/mL (< OR = 4.0)
== END 2025-05-01 15:19 | disposition home or self-care (01) ==
LOC: ANHGOSHLAB 15:18
PROVIDERS: PCP Family Medicine; Visit Provider Family Medicine
DX: C73 Malignant neoplasm of thyroid gland (principal); R74.01 Elevation of levels of liver transaminase levels; Z12.5 Encounter for screening for malignant neoplasm of prostate
CPT/HCPCS: 36415; 80053; 80074; 84153; G0103